=== PATIENT | female | born 1985 | race Two or more races ===

== ENCOUNTER 2016-07-21 13:34 | Emergency (ER) | payer OTHER, BC ==
--- NOTE | 2016-07-21 13:49 | ER Document Report ---
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 Last menstrual period 07/12/2016. She went to the urgent care who bandaged upper finger and sent her over here. I have greeted and performed a rapid initial assessment of this patient. A comprehensive ED assessment and evaluation of the patient, analysis of test results and completion of medical decision making process will be conducted by an additional ED providers. - Related Data Allergies/Adverse Reactions: No Known Allergies Allergy (Verified 10/16/13 02:53) Past Medical History - Social History Family history: Reviewed & Not Pertinent Past Surgical History: Reports: Hx Section, Hx Cholecystectomy - Immunizations Hx Diphtheria, Pertussis, Tetanus Vaccination: No Physical Exam - Vital signs Vitals: Temp Pulse Resp BP Pulse Ox 98.7 F 120 H 24 H 178/92 H 100 07/21/16 13:40 07/21/16 13:40 07/21/16 13:40 07/21/16 13:40 07/21/16 13:40 Course - Vital Signs Vital signs: Temp Pulse Resp BP Pulse Ox 98.7 F 120 H 24 H 178/92 H 100 07/21/16 13:40 07/21/16 13:40 07/21/16 13:40 07/21/16 13:40 07/21/16 13:40
[2016-07-21] MEDS ORDERED: ACETAMINOPHEN 325 MG TABLET PO ONE (13:50)
[2016-07-21] MEDS ORDERED: BUPIVACAINE HCL 0.5 % INJ/PF 30 ML SDV INJ ONE (14:35)
[2016-07-21] MEDS ORDERED: DIPH/PERTUSS(ACELL)/TETANUS VAC/PF 0.5 ML SYR (>=10YO) IM ONE (14:36)
--- NOTE | 2016-07-21 14:38 | ER Document Report ---
ED General - General Chief Complaint: Laceration Stated Complaint: RIGHT FIFTH DIGIT LACERATION Mode of Arrival: Ambulatory Information source: Patient Notes: 31-year-old female presents with complaints of a crush injury to fifth digit while at work just prior to arrival tetanus is not up-to-date TRAVEL OUTSIDE OF THE [place] IN LAST 30 DAYS: No - HPI Onset: Just prior to arrival Onset/Duration: Sudden Quality of pain: Sharp Severity: Mild Pain Level: 1 Associated symptoms: Other Exacerbated by: Movement Relieved by: Denies Similar symptoms previously: No Recently seen / treated by doctor: No - Related Data Allergies/Adverse Reactions: No Known Allergies Allergy (Verified 07/21/16 13:50) Past Medical History - General Information source: Patient - Social History Smoking Status: Current Some Day Smoker Cigarette use (# per day): Yes Chew tobacco use (# tins/day): No Smoking Education Provided: No Frequency of alcohol use: Occasional Drug Abuse: None Family History: Reviewed & Not Pertinent Patient has suicidal ideation: No Patient has homicidal ideation: No Renal/ Medical History: Denies: Hx Peritoneal Dialysis Past Surgical History: Reports: Hx Section, Hx Cholecystectomy - Immunizations Hx Diphtheria, Pertussis, Tetanus Vaccination: Yes Review of Systems - Review of Systems Notes: REVIEW OF SYSTEMS: CONSTITUTIONAL : Denies fever, chills, or sweats. Denies recent illness. EENT: Denies eye, ear, throat, or mouth pain or symptoms. Denies nasal or sinus congestion or discharge. Denies throat, tongue, or mouth swelling or difficulty swallowing. CARDIOVASCULAR: Denies chest pain. Denies palpitations or racing or irregular heart beat. Denies ankle edema. RESPIRATORY: Denies cough, cold, or chest congestion. Denies shortness of breath, difficulty breathing, or wheezing. GASTROINTESTINAL: Denies abdominal pain or distention. Denies nausea, vomiting , or diarrhea. Denies blood in vomitus, stools, or per rectum. Denies black, tarry stools. Denies constipation. GENITOURINARY: Denies difficulty urinating, painful urination, burning, frequency, blood in urine, or discharge. FEMALE GENITOURINARY: Denies vaginal bleeding, heavy or abnormal periods, irregular periods. Denies vaginal discharge or odor. MUSCULOSKELETAL: Denies back or neck pain or stiffness. Denies joint pain or swelling. SKIN: Finger injury HEMATOLOGIC : Denies easy bruising or bleeding. LYMPHATIC: Denies swollen, enlarged glands. NEUROLOGICAL: Denies confusion or altered mental status. Denies passing out or loss of consciousness. Denies dizziness or lightheadedness. Denies headache. Denies weakness or paralysis or loss of use of either side. Denies problems with gait or speech. Denies sensory loss, numbness, or tingling. Denies seizures. PSYCHIATRIC: Denies anxiety or stress. Denies depression, suicidal ideation, or homicidal ideation. ALL OTHER SYSTEMS REVIEWED AND NEGATIVE. Dictation was performed using [employer] recognition software PHYSICAL EXAMINATION: GENERAL: Well-appearing, well-nourished and in no acute distress. HEAD: Atraumatic, normocephalic. EYES: Pupils equal round extraocular movements intact, conjunctiva are normal. ENT: Nares patent NECK: Normal range of motion LUNGS: No respiratory distress Musculoskeletal: Normal range of motion NEUROLOGICAL: Normal speech, normal gait. PSYCH: Normal mood, normal affect. SKIN: Right hand fifth digit mild skin abrasion Physical Exam - Vital signs Vitals: Temp Pulse Resp BP Pulse Ox 98.7 F 120 H 24 H 178/92 H 100 07/21/16 13:40 07/21/16 13:40 07/21/16 13:40 07/21/16 13:40 07/21/16 13:40 Course - Re-evaluation Re-evalutation: 07/21/16 14:37 X-ray noted no acute abnormality, bleeding is controlled. Area was cleansed. Digital nerve block was performed. Patient's otherwise stable for discharge. After performing a Medical Screening Examination, I estimate there is LOW risk for INTRACRANIAL HEMORRHAGE, UNSTABLE SPINE FRACTURE, CENTRAL CORD SYNDROME, CAUDA EQUINA, THORACIC AORTIC DISSECTION, PNEUMOTHORAX, PERFORATED BOWEL, RUPTURED ABDOMINAL AORTIC ANEURYSM, ACUTE TENDON RUPTURE, COMPARTMENT SYNDROME, or OPEN FRACTURE, thus I consider the discharge disposition reasonable. Also, there is no evidence or peritonitis, sepsis, or toxicity. The patient and I have discussed the diagnosis and risks, and we agree with discharging home to follow-up with their primary doctor with the understanding that symptoms and presentations can change. We also discussed returning to the Emergency Department immediately if new or worsening symptoms occur. We have discussed the symptoms which are most concerning (e.g., bloody stool, fever, changing or worsening pain, vomiting) that necessitate immediate return. - Vital Signs Vital signs: Temp Pulse Resp BP Pulse Ox 98.7 F 120 H 24 H 178/92 H 100 07/21/16 13:40 07/21/16 13:40 07/21/16 13:40 07/21/16 13:40 07/21/16 13:40 - Diagnostic Test Radiology reviewed: Image reviewed, Reports reviewed Procedures - Additional Procedures digital nerve block Time performed: 14:38 - using 10 cc of sensorcaine complete nerve block performed with no complication Discharge - Discharge Clinical Impression: Crush injury to finger Qualifiers: Encounter type: initial encounter Qualified Code(s): S67.10XA - Crushing injury of unspecified finger(s), initial encounter Condition: Stable Disposition: HOME, SELF-CARE Instructions: Laceration Care ([facility]) Additional Instructions: Follow up with your physician tomorrow for further care or return to the ED IMMEDIATELY if symptoms worsen or new concerns occur
[2016-07-21 15:05] VITALS: BP 146/84
== END 2016-07-21 15:00 | disposition home or self-care (01) ==
LOC: ER 13:34
PROC: 3E0T3BZ Introduction of Anesthetic Agent into Peripheral Nerves and Plexi, Percutaneous Approach (ICD-10-PCS; principal; 2016-07-21)
DX: S67.196A Crushing injury of right little finger, initial encounter (principal); W20.8XXA Other cause of strike by thrown, projected or falling object, initial encounter; Y99.0 Civilian activity done for income or pay; F17.210 Nicotine dependence, cigarettes, uncomplicated
CPT/HCPCS: 90471; 90715; 99283

== ENCOUNTER 2017-08-11 21:31 | Emergency (ER) | payer BC, OTHER ==
[2017-08-12] MEDS ORDERED: ACETAMINOPHEN 325 MG TABLET PO ONE (00:37)
--- NOTE | 2017-08-12 01:13 | ER Document Report ---
HPI - HPI Pain Level: 4 Context: Fever that started this morning. She also noticed a bite or break in the skin of her left thumb with mild streaking down her thumb and into her hand. She denies any pain, purulent drainage. She is not sure if it was a bug bite or if she cut it on something. Her tetanus is up-to-date. Patient is a 32-year-old female who presents with 2 complaints. Her primary complaint is sore throat otherwise denies any other complaints. Otherwise healthy female - REPRODUCTIVE Reproductive: DENIES: : Past Medical History - Social History Smoking Status: Current Every Day Smoker Family History: Reviewed & Not Pertinent Renal/ Medical History: Denies: Hx Peritoneal Dialysis Past Surgical History: Reports: Hx Section, Hx Cholecystectomy - Immunizations Hx Diphtheria, Pertussis, Tetanus Vaccination: No Vertical Provider Document - CONSTITUTIONAL Agree With Documented VS: Yes Notes: PHYSICAL EXAM GENERAL: Alert, interacts well. HEENT: NCAT, pale conjunctiva, extraocular movements intact, pupils PERRL. external ear normal, no evidence of external auditory canal tenderness, blood/ drainage, cerumen impaction, TM intact without evidence of effusion, bulging, injection, MMM, Uvula midline. Airway patent. Evidence of tonsillar erythema, tonsillar exudates no evidence of tonsillar enlargement, peritonsillar abscess, retropharyngeal abscess. LUNGS: Clear to auscultation bilaterally, no wheezes, rales, or rhonchi. No respiratory distress. HEART: Regular rate and rhythm. No murmurs, gallops, or rubs. ABDOMEN: Soft, nondistended, nontender. No guarding, rebound, or rigidity.. Bowel sounds present in all 4 quadrants. EXTREMITIES: Moves all 4 extremities spontaneously. No edema, radial and dorsalis pedis pulses 2/4 bilaterally. No cyanosis. NEUROLOGICAL: Alert and oriented x4. Normal speech. PSYCH: Normal affect, normal mood. SKIN: Warm, dry, normal turgor. Punctate lesion noted on the fat pad of the left thumb with surrounding erythema and streaking down the top of her thumb. No evidence of associated inflamed tendinitis. - INFECTION CONTROL TRAVEL OUTSIDE OF THE [place] IN LAST 30 DAYS: No - RESPIRATORY O2 Sat by Pulse Oximetry: 99 Course - Re-evaluation Re-evalutation: 08/12/17 01:12 Presentation of sore throat in an otherwise well-appearing patient. Rapid strep is positive. History and exam are not consistent with a retropharyngeal abscess or peritonsillar abscess. Airway is patent. No difficulty handling oral secretions. Vitals within normal limits. Patient has been treated with an IM dose of penicillin. Regarding the puncture wounds. This was irrigated and dressed at the bedside. Patient will be additionally given p.o. antibiotics to cover for any developing cellulitis given the evidence of streaking down her hand. at this time will discharge with return precautions and follow-up recommendations. Verbal discharge instructions given a the bedside and opportunity for questions given. Medication warnings reviewed. Patient is in agreement with this plan and has verbalized understanding of return precautions and the need for primary care follow-up in the next week. - Vital Signs Vital signs: Temp Pulse Resp BP Pulse Ox 99.9 F 158 H 18 191/105 H 99 08/11/17 21:45 08/11/17 21:45 08/11/17 21:45 08/11/17 21:45 08/11/17 21:45 Discharge - Discharge Clinical Impression: Strep pharyngitis, Puncture wound Condition: Good Disposition: HOME, SELF-CARE Instructions: Puncture Wound ([facility]) Additional Instructions: You have been diagnosed with strep throat based on a positive strep test. You have been treated with a dose of penicillin here in the emergency department and do not need any additional antibiotics. You have also been given a dose of steroids to help with your throat discomfort. Please continue to take ibuprofen 600 mg every 6 hours or Tylenol 1000 mg every 6 hours as needed for throat discomfort. You can also gargle with salt water. Continue to drink plenty of fluids. Follow-up with your primary care doctor in the next several days. Return if you become unable to swallow, have difficulty breathing, pass out, have persistent vomiting that prevents you from being able to tolerate fluids, or have any other symptoms that are concerning to you. Prescriptions: Cephalexin Monohydrate [Keflex 500 mg Capsule] 500 mg PO Q6H 5 Days capsule Forms: Return to Work
[2017-08-12] MEDS ORDERED: DEXAMETHASONE SOD PHOS INJ 10 MG/1 ML VIAL IM ONE (01:14)
[2017-08-12] MEDS ORDERED: PENICILLIN G BENZATHINE 1.2 MILLION UNIT/2 ML DISP.SYRIN IM ONE (01:14)
[2017-08-12 01:59] VITALS: BP 142/98
== END 2017-08-12 01:59 | disposition home or self-care (01) ==
LOC: ER 21:31
DX: J02.0 Streptococcal pharyngitis (principal); S61.012A Laceration without foreign body of left thumb without damage to nail, initial encounter; W26.9XXA Contact with unspecified sharp object(s), initial encounter; F17.200 Nicotine dependence, unspecified, uncomplicated
CPT/HCPCS: 99282; 96372; 87880; J0561; J1100

== ENCOUNTER 2018-03-08 09:32 | Emergency (ER) | payer SELFPAY ==
[2018-03-08] MEDS ORDERED: NORMAL SALINE 1000 ML 1,000 ML IV ONE (09:52)
--- NOTE | 2018-03-08 09:55 | ER Document Report ---
ED Medical Screen (RME) - General Chief Complaint: Chest Pain Stated Complaint: CHEST PAIN,SHORT OF BREATH Time Seen by Provider: 03/08/18 09:51 Notes: Patient is a 33-year-old previously healthy female that presents to the emergency department for chief complaint of chest pain, shortness of breath. Patient reports that over the last 3 weeks she has been having lightheadedness, left-sided chest pain, and feeling like her heart is racing and palpitations. She denies any radiation to the pain in her chest, other than its on the left side, no exertional component. Denies recent travel, leg swelling, family history of DVT or PE. She states that she does not believe she is . States that she had a father that had an IL at age 58. She reports taking Excedrin this morning to help with her pain. ROS: Unless otherwise stated in this report the patient's positive and negative responses for review of systems for constitutional, eyes, ENT, cardiovascular, respiratory, gastrointestinal, neurological, genitourinary, musculoskeletal, and integumentary systems and related systems to the presenting problem are either as stated in the HPI or were not pertinent or were negative for the symptoms and/or complaints related to the presenting medical problem. PHYSICAL EXAMINATION: Vital signs reviewed. GENERAL: Well-appearing, well-nourished and in no acute distress. HEAD: Atraumatic, normocephalic. EYES: Pupils equal round extraocular movements intact, conjunctiva are normal. ENT: Nares patent NECK: Normal range of motion CV: Rate tachycardic, regular rhythm LUNGS: No respiratory distress Musculoskeletal: Normal range of motion NEUROLOGICAL: Normal speech PSYCH: Normal mood, normal affect. MDM: Patient seen and examined for rapid initial assessment. Vital signs reviewed. EKG demonstrates sinus tachycardia, with occasional PVCs, no STEMI. A comprehensive ED assessment and evaluation of the patient, analysis of test results and completion of the medical decision making process will be conducted by additional ED providers. *Note is created using voice recognition software and may contain spelling, syntax or grammatical errors. TRAVEL OUTSIDE OF THE [place] IN LAST 30 DAYS: No - Related Data Allergies/Adverse Reactions: No Known Allergies Allergy (Verified 03/08/18 09:33) Past Medical History - Social History Frequency of alcohol use: None Drug Abuse: None Family history: Reviewed & Not Pertinent - Past Medical History Cardiac Medical History: Reports: Hx Hypertension Renal/ Medical History: Denies: Hx Peritoneal Dialysis Past Surgical History: Reports: Hx Section, Hx Cholecystectomy - Immunizations Hx Diphtheria, Pertussis, Tetanus Vaccination: No Physical Exam - Vital signs Vitals: Temp Pulse Resp BP Pulse Ox 98.6 F 145 H 16 158/97 H 100 03/08/18 09:44 03/08/18 09:44 03/08/18 09:44 03/08/18 09:44 03/08/18 09:44 Course - Vital Signs Vital signs: Temp Pulse Resp BP Pulse Ox 98.6 F 145 H 16 158/97 H 100 03/08/18 09:44 03/08/18 09:44 03/08/18 09:44 03/08/18 09:44 03/08/18 09:44
--- NOTE | 2018-03-08 10:26 | ER Document Report ---
ED General - General Chief Complaint: Chest Pain Stated Complaint: CHEST PAIN,SHORT OF BREATH Time Seen by Provider: 03/08/18 09:51 TRAVEL OUTSIDE OF THE [place] IN LAST 30 DAYS: No - HPI Notes: Patient is a 33-year-old female that presents to the emergency department for chief complaint of chest pain. Patient reports left-sided chest pain radiating down into her left arm with associated palpitations lightheadedness and shortness of breath over the last 3 weeks. She states the episodes last for 5 minutes at a time and then completely resolved. She denies any aggravating or relieving factors to her symptoms. She states that they occur at rest and with exertion. She did try taking Excedrin this morning for the pain and reports some relief. She states currently she is not having any symptoms except for some palpitations. Her father had his first UT at 58. She is an occasional tobacco user. She has been noncompliant with her hypertension medications for the last few months. She denies any recent surgery, travel, immobilization or exogenous estrogen use. She denies any lower extremity swelling or cramping Past Medical History: Hypertension Past Surgical History: Social History: Occasional alcohol, occasional tobacco, denies drug use Family History: Reviewed and noncontributory for presenting illness Allergies: Reviewed, see documented allergy list. REVIEW OF SYSTEMS: CONSTITUTIONAL : No fever No chills No diaphoresis No recent illness Lightheadedness EENT: No vision changes No congestion No sore throat CARDIOVASCULAR: chest pain palpitations RESPIRATORY: shortness of breath No cough No difficulty breathing GASTROINTESTINAL: No abdominal pain No nausea No vomiting No diarrhea GENITOURINARY: No dysuria No hematuria No difficulty urinating MUSCULOSKELETAL: No back pain No leg pain No arm pain SKIN: No rashes No lesions LYMPHATIC: No swollen, enlarged glands. NEUROLOGICAL: No lightheadedness No headache No weakness No paresthesias PSYCHIATRIC: No anxiety No depression PHYSICAL EXAMINATION: Vital signs reviewed, nursing noted reviewed. GENERAL: Well-appearing, well-nourished and in no acute distress. HEAD: Atraumatic, normocephalic. EYES: Eyes appear normal, extraocular movements intact, sclera anicteric, conjunctiva are normal. ENT: nares patent, oropharynx clear without exudates. Moist mucous membranes. NECK: Normal range of motion, supple without lymphadenopathy LUNGS: Breath sounds clear to auscultation bilaterally and equal. No wheezes rales or rhonchi. HEART: Tachycardic rate and regular rhythm without murmurs. +2/4 radial, DP and PT pulses bilaterally ABDOMEN: Soft, nontender, normoactive bowel sounds. No rebound, guarding, or rigidity. No masses appreciated. EXTREMITIES: Nontender, good range of motion, no pitting or edema. Negative Homans sign bilaterally NEUROLOGICAL: No focal neurological deficits. Moves all extremities spontaneously Motor and sensory grossly intact on exam. PSYCH: Normal mood, normal affect. SKIN: Warm, Dry, normal turgor, no rashes or lesions noted on exposed skin - Related Data Allergies/Adverse Reactions: No Known Allergies Allergy (Verified 03/08/18 09:33) Past Medical History - Social History Smoking Status: Current Some Day Smoker Frequency of alcohol use: None Drug Abuse: None Family History: Reviewed & Not Pertinent Patient has suicidal ideation: No Patient has homicidal ideation: No - Past Medical History Cardiac Medical History: Reports: Hx Hypertension Renal/ Medical History: Denies: Hx Peritoneal Dialysis Past Surgical History: Reports: Hx Section, Hx Cholecystectomy - Immunizations Hx Diphtheria, Pertussis, Tetanus Vaccination: No Review of Systems - Review of Systems Notes: Dictated Physical Exam - Vital signs Vitals: Temp Pulse Resp BP Pulse Ox 98.6 F 145 H 16 158/97 H 100 03/08/18 09:44 03/08/18 09:44 03/08/18 09:44 03/08/18 09:44 03/08/18 09:44 - Notes Notes: Dictated Course - Re-evaluation Re-evalutation: 03/08/18 10:25 Vitals reviewed. Nursing notes reviewed. EKG shows sinus tachycardia with no ST elevation. Patient currently chest pain-free and resting comfortably. 03/08/18 12:27 Patient reevaluated. She has remained chest pain-free while in the emergency room. Lab work is unremarkable. Her heart score is 2 putting her at low risk of MACE. I offered her a repeat troponin which she has declined. Patient was counseled on risk factor modifications including following closely with primary care to restart blood pressure medications, tobacco cessation, and dietary changes. She is in agreement with this plan. She will return for new or worsening symptoms. She will follow with primary care on Friday for reevaluation. Discharged home in stable condition. Laboratory 03/08/18 03/08/18 03/08/18 10:44 10:44 10:44 WBC 11.5 H RBC 4.91 Hgb 14.1 Hct 41.6 MCV 85 MCH 28.7 MCHC 33.8 RDW 14.0 Plt Count 290 Seg Neutrophils % 82.4 H Lymphocytes % 13.5 Monocytes % 3.5 Eosinophils % 0.1 Basophils % 0.5 Absolute Neutrophils 9.5 H Absolute Lymphocytes 1.6 Absolute Monocytes 0.4 Absolute Eosinophils 0.0 Absolute Basophils 0.1 Sodium 140.7 Potassium 3.8 Chloride 106 Carbon Dioxide 18 L Anion Gap 17 BUN 10 Creatinine 0.91 Est GFR ( Amer) > 60 Est GFR (Non-Af Amer) > 60 Glucose 103 Calcium 10.3 H Total Bilirubin 0.4 Direct Bilirubin 0.2 Neonat Total Bilirubin Not Reportable Neonat Direct Bilirubin Not Reportable Neonat Indirect Bili Not Reportable AST 21 ALT 20 Alkaline Phosphatase 76 Troponin I Total Protein 8.8 H Albumin 4.9 TSH 1.94 Free T4 1.18 Serum HCG, Qual 03/08/18 03/08/18 10:44 10:50 WBC RBC Hgb Hct MCV MCH MCHC RDW Plt Count Seg Neutrophils % Lymphocytes % Monocytes % Eosinophils % Basophils % Absolute Neutrophils Absolute Lymphocytes Absolute Monocytes Absolute Eosinophils Absolute Basophils Sodium Potassium Chloride Carbon Dioxide Anion Gap BUN Creatinine Est GFR ( Amer) Est GFR (Non-Af Amer) Glucose Calcium Total Bilirubin Direct Bilirubin Neonat Total Bilirubin Neonat Direct Bilirubin Neonat Indirect Bili AST ALT Alkaline Phosphatase Troponin I < 0.012 Total Protein Albumin TSH Free T4 Serum HCG, Qual NEGATIVE Chest/Abdomen CTA 03/08/18 10:35 IMPRESSION: NORMAL CTA OF THE CHEST. NO PULMONARY EMBOLI. - Vital Signs Vital signs: Temp Pulse Resp BP Pulse Ox 98.6 F 145 H 13 177/96 H 100 03/08/18 09:44 03/08/18 09:44 03/08/18 10:57 03/08/18 10:58 03/08/18 10:57 - Laboratory Result Diagrams: 03/08/18 10:44 03/08/18 10:44 Laboratory results interpreted by me: 03/08/18 03/08/18 10:44 10:44 WBC 11.5 H Seg Neutrophils % 82.4 H Absolute Neutrophils 9.5 H Carbon Dioxide 18 L Calcium 10.3 H Total Protein 8.8 H - EKG Interpretation by Me Additional EKG results interpreted by me: 03/08/18 10:24 Interpreted by myself [id number]: Sinus tachycardia, rate 138, normal axis, PVCs, normal TX and QRS duration , no WPW, no ST elevation Discharge - Discharge Clinical Impression: Medical non-compliance, Elevated blood pressure reading, Tachycardia Chest pain Qualifiers: Chest pain type: unspecified Qualified Code(s): R07.9 - Chest pain, unspecified Condition: Stable Disposition: HOME, SELF-CARE Instructions: Chest Pain of Unclear Cause ([facility]), High Blood Pressure ([facility]), Stop Smoking ([facility]), Family Physicians / Practices Additional Instructions: Please return to the emergency department if you have any worsening, or concern of your symptoms. Please return to the emergency department if you develop chest pain, difficulty breathing, severe abdominal pain, or ongoing vomiting. Please follow-up with your primary care physician in 2-3 days and any other recommended physicians. If prescribed, take all medications as directed. If you have any questions or concerns do not hesitate to return the emergency department for evaluation. []
[2018-03-08 11:00] LABS: ABSOLUTE BASOPHILS # (AUTO) 0.1 10^3/uL (0.0-0.2); ABSOLUTE LYMPHOCYTES (AUTO) 1.6 10^3/uL (0.5-4.7); ABSOLUTE MONOCYTES (AUTO) 0.4 10^3/uL (0.1-1.4); ABSOLUTE NEUT (AUTO) 9.5 10^3/uL (1.7-8.2); BASOPHILS % (AUTO) 0.5 % (0-2); EOSINOPHILS % (AUTO) 0.1 % (0-6); HEMATOCRIT 41.6 % (36.0-47.0); HEMOGLOBIN 14.1 g/dL (12.0-15.5); LYMPHOCYTES % (AUTO) 13.5 % (13-45); MEAN CORPUSCULAR HEMOGLOBIN 28.7 pg (27.0-33.4); MEAN CORPUSCULAR HGB CONC 33.8 g/dL (32.0-36.0); MEAN CORPUSCULAR VOLUME 85 fl (80-97); MONOCYTES % (AUTO) 3.5 % (3-13); PLATELET COUNT 290 10^3/uL (150-450); RED BLOOD COUNT 4.91 10^6/uL (3.72-5.28); SEGMENTED NEUTROPHILS % (AUTO) 82.4 % (42-78); TOTAL CELLS COUNTED % (AUTO) 100 %; WHITE BLOOD COUNT 11.5 10^3/uL (4.0-10.5)
[2018-03-08 11:25] LABS: ALANINE AMINOTRANSFERASE 20 U/L (9-52); ALBUMIN 4.9 g/dL (3.5-5.0); ALKALINE PHOSPHATASE 76 U/L (38-126); ANION GAP 17 (5-19); ASPARTATE AMINO TRANSFERASE 21 U/L (14-36); BILIRUBIN,DIRECT 0.2 mg/dL (0.0-0.4); BILIRUBIN,TOTAL 0.4 mg/dL (0.2-1.3); BLOOD UREA NITROGEN 10 mg/dL (7-20); CALCIUM 10.3 mg/dL (8.4-10.2); CARBON DIOXIDE 18 mmol/L (22-30); CHLORIDE 106 mmol/L (98-107); GLUCOSE 103 mg/dL (75-110); POTASSIUM 3.8 mmol/L (3.6-5.0); SODIUM 140.7 mmol/L (137-145); TOTAL PROTEIN 8.8 g/dL (6.3-8.2)
[2018-03-08 11:38] LABS: FREE T4 (FREE THYROXINE) 1.18 ng/dL (0.78-2.19)
[2018-03-08 11:52] LABS: THYROID STIMULATING HORMONE 1.94 uIU/mL (0.47-4.68)
--- NOTE | 2018-03-08 12:13 | RADIOLOGY REPORT (SQ) ---
EXAM DESCRIPTION: CTA CHEST COMPLETED DATE/TIME: 03/08/2018 11:47 am REASON FOR STUDY: PE,CHEST PAIN COMPARISON: None. TECHNIQUE: CT scan of the chest performed using helical scanning technique with dynamic intravenous contrast injection. Images reviewed with lung, soft tissue and bone windows. Reconstructed coronal and sagittal MPR images reviewed. Additional 3 dimensional post-processing performed to develop Maximal Intensity Projection images (IL P). All images stored on PACS. All CT scanners at this facility use dose modulation, iterative reconstruction, and/or weight based d osing when appropriate to reduce radiation dose to as low as reasonably achievable (ALARA). [facility]: Dose Right [facility]: CareDose [facility]: Dose Right [facility]: Teradose 4D [facility]: Acrisure CONTRAST TYPE AND DOSE: contrast/concentration: Isovue 350.00 mg/ml; Total Contrast Delivered: 69.0 ml; Total Saline Delivered: 95.0 ml Contrast bolus adequate for pulmonary arteries and aorta. RENAL FUNCTION: GFR > 60. RADIATION DOSE: CT Rad equipment meets quality standard of care and radiation dose reduction techniq ues were employed. CTDIvol: 14.4 - 16.5 mGy. DLP: 542 mGy-cm. . LIMITATIONS: None. FINDINGS: LUNGS AND PLEURA: No masses, infiltrates, or pneumothorax. No pleural effusions or pleura l calcifications. AORTA AND GREAT VESSELS: No aneurysm. No dissection. HEART: No pericardial effusion. No significant coronary artery calcifications. PULMONARY ARTERIES: No emboli visualized in the main pulmonary arteries or the segmental branches. HILAR AND MEDIASTINAL STRUCTURES: No identified masses or abnormal nodes. HARDWARE: None in the chest. UPPER ABDOMEN: No significant findings. Limited exam. THYROID AND OTHER SOFT TISSUES: No masses. No adenopathy. BONES: No acute or significant finding. 3D MIPS: Confirm above findings. OTHER: No other significant finding. IMPRESSION: NORMAL CTA OF THE CHEST. NO PULMONARY EMBOLI. COMMENT: Quality ID # [id number]: Final reports with documentation of one or more dose reduction techniques (e.g., Automated exposure control, adjustment of the mA and/or kV according to patient size, use of iterative reconstruction technique) TECHNICAL DOCUMENTATION: JOB ID: [id number] [employer]- All Rights Reserved Reading location - IP/workstation name: [email or web address]
[2018-03-08 13:01] VITALS: BP 150/97
--- NOTE | 2018-03-08 19:47 | EKG REPORT ---
SEVERITY:- ABNORMAL ECG - SINUS TACHYCARDIA MULTIPLE VENTRICULAR PREMATURE COMPLEXES : Confirmed by: Kerrie Mabry MD 08-Mar-2018 19:46:03
== END 2018-03-08 13:00 | disposition home or self-care (01) ==
LOC: ER 09:32
DX: Z91.14 Patient's other noncompliance with medication regimen (principal); I10 Essential (primary) hypertension; R00.2 Palpitations; R00.0 Tachycardia, unspecified; R07.9 Chest pain, unspecified; R06.02 Shortness of breath; M79.602 Pain in left arm; R42 Dizziness and giddiness; F17.200 Nicotine dependence, unspecified, uncomplicated
CPT/HCPCS: 93005; 99285; 96360; 96361; 36415; 84439; 84443; 84703; 85025; 80053; 84484; 71275; 93010; J7030